=== PATIENT | female | born 1930 | race Caucasian/White ===

== ENCOUNTER 2017-11-02 16:42 | Inpatient (IN) | payer OTHER, MEDICARE ==
[~2017-11-02] VITALS: Ht 160 cm; Wt 67.1 kg
[~2017-11-02 16:42] MED LIST: AMLODIPINE BESYL5 MG PO; ASPIR-LOW81 MG PO; ATROVENT 0.06%15 ML BOTH NARES; BIOTIN5 M1 PO; CIPRO500 MG PO; FISH OIL500 MG PO; FLORASTOR250 MG PO; LISINOPRIL10 MG PO; LISINOPRIL5 MG PO; OSTERA TABLET1 EACH PO; RED YEAST RICE600 MG PO; TRIAMTERENE-HC1 EAC1 PO; TRIAMTERENE-HC1 EACH PO; TRICOR145 MG PO; VITAMIN D1000 UNIT PO; XALATAN2.5 ML BOTH EYES
[2017-11-02 17:04] LABS: BASOPHIL (%) 0.4 % (0-1); EOSINOPHIL (%) 0.8 % (0-5); EOSINOPHIL COUNT 0.1 K/uL (0-0.3); HEMATOCRIT 40.5 % (36.0-46.0); HEMOGLOBIN 13.5 G/DL (11.9-15.5); IMMATURE GRANULOCYTE (%) 0.5 % (0.0-0.7); LYMPHOCYTE (%) 37.1 % (15-42); LYMPHOCYTE COUNT 2.8 K/uL (1.0-2.8); MCH 28.9 PG (29.0-34.0); MCHC 33.3 G/DL (30.0-36.0); MCV 86.7 FL (83-99); MONOCYTE (%) 7.5 % (3-12); MONOCYTE COUNT 0.6 K/uL (0-0.8); NEUTROPHIL (%) 53.7 % (45-76); NEUTROPHIL COUNT 4.1 K/uL (1.8-6.4); PLATELET COUNT 227 K/uL (156-360); RBC DIS.WIDTH-CV 14.1 % (11.8-14.6); RBC DIS.WIDTH-SD 44.7 % (39-53); RED BLOOD COUNT 4.67 M/uL (3.80-5.20); WHITE BLOOD COUNT 7.6 K/uL (4.1-10.2)
[2017-11-02 17:12] LABS: PTT 27.5 SEC (25-37)
[2017-11-02 17:16] LABS: MAGNESIUM 2.1 mg/dL (1.3-2.7)
[2017-11-02 17:16] LABS: ALBUMIN 4.2 g/dL (3.2-4.8); CHLORIDE 104 mEq/L (99-109); POTASSIUM 3.9 mEq/L (3.7-5.4); SODIUM 141 mEq/L (136-147)
[2017-11-02 17:18] LABS: GLUCOSE 141 mg/dL (70-99)
[2017-11-02 17:20] LABS: TOTAL BILIRUBIN 0.5 mg/dL (0.0-1.0)
[2017-11-02 17:22] LABS: ALKALINE PHOSPHATASE 86 IU/L (3-129); CREATININE 1.2 mg/dL (0.6-1.3); GFR ESTIMATE (CALCULATED) 45 mL/min/
[2017-11-02 17:23] LABS: UREA NITROGEN (BUN) 28 mg/dL (9-23)
[2017-11-02 17:24] LABS: AST (GOT) 26 IU/L (2-34)
[2017-11-02 17:25] LABS: ALT (GPT) 19 IU/L (3-49)
[2017-11-02 18:39] LABS: TROP-I INTERPRETATION NEGATIVE; TROPONIN-I < 0.01 ng/mL (0.0-0.30)
[2017-11-02 19:02] LABS: APPEARANCE CLOUDY ((CLEAR)); BILIRUBIN NEGATIVE; BLOOD SMALL; COLOR YELLOW ((YELLOW)); GLUCOSE (STRIP) NEGATIVE; KETONES NEGATIVE; LEUKOCYTES LARGE; NITRITE POSITIVE; PROTEIN (STRIP) NEGATIVE; SPECIFIC GRAVITY 1.009 (1.000-1.030); UROBILINOGEN 0.2 MG/DL (0.2-1.0)
[2017-11-02 19:26] LABS: EPITHELIAL CELLS RARE /HPF; MUCUS RARE /LPF; RED BLOOD CELLS 0-5 /HPF (0-5); WHITE BLOOD CELLS TNTC /HPF (0-5)
[2017-11-02 19:27] LABS: BACTERIA 2+ /HPF; UCUL ADDED? YES
[2017-11-02] MEDS ORDERED: COD LIVER OIL1 EAC3 PO (19:29)
[2017-11-02] MEDS ORDERED: AMLODIPINE BES2.5 MG PO (19:30)
[2017-11-02] MEDS ORDERED: LISINOPRIL-HCT1 EACH PO (19:30)
[2017-11-02] MEDS ORDERED: ASPIR 8181 M1 PO (19:31)
[2017-11-02 21:38] VITALS: BP 141/69
[2017-11-02 22:15] VITALS: BP 148/67
[2017-11-02 22:17] VITALS: BP 143/58
[2017-11-02 22:19] VITALS: BP 146/67
[2017-11-03 00:14] VITALS: BP 156/71
[2017-11-03 03:56] VITALS: BP 148/70
[2017-11-03 05:33] LABS: CHLORIDE 105 MEQ/L (99-109); GFR ESTIMATE (CALCULATED) 56 mL/min/; HDL CHOLESTEROL 51 MG/DL (Desirable>=50); LDL CHOLESTEROL 132 mg/dL (Desirable<100); NON-HDL CHOLESTEROL 165 mg/dL (Desirable<160); POTASSIUM 3.4 MEQ/L (3.7-5.4); SODIUM 141 MEQ/L (136-147); TOTAL CHOLESTEROL 216 mg/dL (Desirable<200); TRIGLYCERIDES 164 MG/DL (Normal: <150); UREA NITROGEN (BUN) 20 mg/dL (9-23)
[2017-11-03 05:34] LABS: GLUCOSE 89 mg/dL (70-99)
[2017-11-03 08:27] VITALS: BP 179/73
[2017-11-03 12:10] VITALS: BP 167/87
[2017-11-03 19:17] VITALS: BP 130/61
[2017-11-03 23:32] VITALS: BP 150/72
[2017-11-04 04:46] VITALS: BP 132/62
[2017-11-04 05:55] LABS: CHLORIDE 105 MEQ/L (99-109); CREATININE 1.1 MG/DL (0.6-1.3); GFR ESTIMATE (CALCULATED) 50 mL/min/; GLUCOSE 95 mg/dL (70-99); POTASSIUM 4.6 MEQ/L (3.7-5.4); SODIUM 142 MEQ/L (136-147); UREA NITROGEN (BUN) 27 mg/dL (9-23)
[2017-11-04 07:40] VITALS: BP 144/69
[2017-11-04] MEDS ORDERED: ATORVASTATIN CA40 MG PO (11:07)
[2017-11-04] MEDS ORDERED: ASPIR-LOW81 MG PO (11:08)
[2017-11-04] MEDS ORDERED: CEFTIN500 MG PO (11:09)
[2017-11-04 12:10] VITALS: BP 178/71
== END 2017-11-04 13:16 | disposition home or self-care (01) | DRG 69 ==
LOC: EME 16:42 → 4SOUTH 19:29 → EDOF 19:29 → ENRESERV 19:31 → 4SOUTH 21:21 → CANRESERV 11-03 11:05 → ENRESERV 11-03 11:05 → ENPENDDIS 11-04 11:26 → 4SOUTH 11-04 13:16
PROVIDERS: Emergency Medicine; Hospitalist; Physician Assistant Medical
DX: G45.9 Transient cerebral ischemic attack, unspecified (principal); N39.0 Urinary tract infection, site not specified; N17.9 Acute kidney failure, unspecified; J90 Pleural effusion, not elsewhere classified; J98.11 Atelectasis; N18.3 Chronic kidney disease, stage 3 (moderate); E86.0 Dehydration; E87.6 Hypokalemia; E78.5 Hyperlipidemia, unspecified; B96.20 Unspecified Escherichia coli [E. coli] as the cause of diseases classified elsewhere; H40.9 Unspecified glaucoma; I12.9 Hypertensive chronic kidney disease with stage 1 through stage 4 chronic kidney disease, or unspecified chronic kidney disease; E55.9 Vitamin D deficiency, unspecified; R94.31 Abnormal electrocardiogram [ECG] [EKG]; R47.81 Slurred speech; Z79.82 Long term (current) use of aspirin; Z80.0 Family history of malignant neoplasm of digestive organs; Z80.1 Family history of malignant neoplasm of trachea, bronchus and lung; Z82.3 Family history of stroke
CPT/HCPCS: 36415; 70450; 70551; 71045; 80048; 80053; 80061; 81003; 82150; 82607; 83036; 83605; 83690; 83735; 84443; 84484; 85025; 85610; 85730; 86850; 86900; 86901; 87040; 87077; 87086; 87186; 92523 GN; 93005; 93306; 93880; 99281; 99285; G0378; G0480; J0696; J1644; J7030

== ENCOUNTER 2017-11-25 17:13 | Inpatient (IN) | payer OTHER, MEDICARE ==
[~2017-11-25] VITALS: Ht 162.6 cm; Wt 69.2 kg
[~2017-11-25 17:13] MED LIST changes: +AMLODIPINE BES2.5 MG PO; +ASPIR 8181 M1 PO; +ATORVASTATIN CA40 MG PO; +CEFTIN500 MG PO; +COD LIVER OIL1 EAC3 PO; +LISINOPRIL-HCT1 EACH PO
[2017-11-25 18:44] LABS: BASOPHIL (%) 0.1 % (0-1); EOSINOPHIL (%) 0 % (0-5); HEMATOCRIT 36.3 % (36.0-46.0); HEMOGLOBIN 12.3 G/DL (11.9-15.5); IMMATURE GRANULOCYTE (%) 0.5 % (0.0-0.7); LYMPHOCYTE COUNT 1.4 K/uL (1.0-2.8); MCH 28.7 PG (29.0-34.0); MCHC 33.9 G/DL (30.0-36.0); MCV 84.8 FL (83-99); MONOCYTE (%) 7.6 % (3-12); MONOCYTE COUNT 0.8 K/uL (0-0.8); NEUTROPHIL (%) 77.8 % (45-76); NEUTROPHIL COUNT 7.9 K/uL (1.8-6.4); PLATELET COUNT 168 K/uL (156-360); RBC DIS.WIDTH-CV 14.4 % (11.8-14.6); RBC DIS.WIDTH-SD 44.9 % (39-53); RED BLOOD COUNT 4.28 M/uL (3.80-5.20); WHITE BLOOD COUNT 10.2 K/uL (4.1-10.2)
[2017-11-25 18:52] LABS: INTER. NORMALIZED RATIO 1.2
[2017-11-25 18:53] LABS: ALBUMIN 3.6 g/dL (3.2-4.8); CHLORIDE 97 mEq/L (99-109); POTASSIUM 3.2 mEq/L (3.7-5.4); SODIUM 132 mEq/L (136-147)
[2017-11-25 18:54] LABS: MAGNESIUM 1.9 mg/dL (1.3-2.7)
[2017-11-25 18:55] LABS: PTT 25.9 SEC (25-37)
[2017-11-25 18:56] LABS: GLUCOSE 150 mg/dL (70-99); TOTAL PROTEIN 6.5 g/dL (6.4-8.3)
[2017-11-25 18:57] LABS: APPEARANCE CLOUDY ((CLEAR)); BILIRUBIN NEGATIVE; BLOOD MODERATE; COLOR AMBER ((YELLOW)); GLUCOSE (STRIP) NEGATIVE; KETONES NEGATIVE; LEUKOCYTES MODERATE; NITRITE NEGATIVE; PROTEIN (STRIP) 100; SPECIFIC GRAVITY 1.014 (1.000-1.030)
[2017-11-25 18:58] LABS: TOTAL BILIRUBIN 0.8 mg/dL (0.0-1.0)
[2017-11-25 18:59] LABS: ALKALINE PHOSPHATASE 71 IU/L (3-129); CREATININE 1.4 mg/dL (0.6-1.3); GFR ESTIMATE (CALCULATED) 38 mL/min/
[2017-11-25 19:00] LABS: UREA NITROGEN (BUN) 32 mg/dL (9-23)
[2017-11-25 19:01] LABS: AST (GOT) 59 IU/L (2-34)
[2017-11-25 19:02] LABS: ALT (GPT) 31 IU/L (3-49); CREATINE KINASE 549 IU/L (1-294); TOTAL CK 549 IU/L (1-294)
[2017-11-25 19:06] LABS: TROP-I INTERPRETATION POSITIVE
[2017-11-25 19:08] LABS: CK-MB 2.7 ng/mL (0.0-4.9); CKMB RELATIVE INDEX 0.5 (0.0-3.9)
[2017-11-25 19:11] LABS: TROPONIN-I 2.45 ng/mL (0.0-0.30)
[2017-11-25 19:14] LABS: RED BLOOD CELLS 0-5 /HPF (0-5); WHITE BLOOD CELLS TNTC /HPF (0-5)
[2017-11-25 19:15] LABS: EPITHELIAL CELLS RARE /HPF
[2017-11-25 19:16] LABS: AMORPHOUS URATES CRYSTALS 1+; BACTERIA 3+ /HPF; MUCUS TRACE /LPF; UCUL ADDED? YES
[2017-11-25] MEDS ORDERED: LO-DOSE ASPIRIN81 M1 PO (19:41)
[2017-11-25 20:43] LABS: HEMATOCRIT 34.3 % (36.0-46.0); HEMOGLOBIN 11.6 G/DL (11.9-15.5); MCH 28.6 PG (29.0-34.0); MCHC 33.8 G/DL (30.0-36.0); MCV 84.7 FL (83-99); PLATELET COUNT 159 K/uL (156-360); RBC DIS.WIDTH-CV 14.3 % (11.8-14.6); RBC DIS.WIDTH-SD 44.3 % (39-53); RED BLOOD COUNT 4.05 M/uL (3.80-5.20); WHITE BLOOD COUNT 10.9 K/uL (4.1-10.2)
[2017-11-25 20:55] LABS: ALBUMIN 3.4 g/dL (3.2-4.8); CHLORIDE 97 mEq/L (99-109); SODIUM 131 mEq/L (136-147)
[2017-11-25 20:57] LABS: GLUCOSE 142 mg/dL (70-99); TOTAL PROTEIN 6.2 g/dL (6.4-8.3)
[2017-11-25 20:59] LABS: MAGNESIUM 1.6 mg/dL (1.3-2.7); TOTAL BILIRUBIN 0.7 mg/dL (0.0-1.0)
[2017-11-25 21:00] VITALS: BP 116/65
[2017-11-25 21:01] LABS: ALKALINE PHOSPHATASE 67 IU/L (3-129); CREATININE 1.4 mg/dL (0.6-1.3); GFR ESTIMATE (CALCULATED) 38 mL/min/
[2017-11-25 21:02] LABS: AST (GOT) 52 IU/L (2-34); UREA NITROGEN (BUN) 32 mg/dL (9-23)
[2017-11-25 21:04] LABS: ALT (GPT) 29 IU/L (3-49)
[2017-11-25 21:26] LABS: HDL CHOLESTEROL 44 MG/DL (Desirable>=50); LDL CHOLESTEROL 46 mg/dL (Desirable<100); NON-HDL CHOLESTEROL 69 mg/dL (Desirable<160); TOTAL CHOLESTEROL 113 mg/dL (Desirable<200); TRIGLYCERIDES 113 MG/DL (Normal: <150)
[2017-11-25 23:36] VITALS: BP 129/71
[2017-11-26 01:16] LABS: TROP-I INTERPRETATION POSITIVE
[2017-11-26 01:32] LABS: TROPONIN-I 1.94 ng/mL (0.0-0.30)
[2017-11-26 04:14] VITALS: BP 108/57
[2017-11-26 07:23] VITALS: BP 118/57
[2017-11-26 07:53] LABS: TROP-I INTERPRETATION POSITIVE; TROPONIN-I 1.97 ng/mL (0.0-0.30)
[2017-11-26 11:46] VITALS: BP 108/55
[2017-11-26 14:58] LABS: TROP-I INTERPRETATION POSITIVE; TROPONIN-I 1.43 ng/mL (0.0-0.30)
[2017-11-26 15:31] VITALS: BP 114/60
[2017-11-26 19:29] VITALS: BP 126/60
[2017-11-26 23:36] VITALS: BP 107/55
[2017-11-27 03:45] VITALS: BP 128/60
[2017-11-27 07:22] VITALS: BP 128/64
[2017-11-27 07:33] LABS: HEMATOCRIT 32.5 % (36.0-46.0); HEMOGLOBIN 10.5 G/DL (11.9-15.5); MCH 27.7 PG (29.0-34.0); MCHC 32.3 G/DL (30.0-36.0); MCV 85.8 FL (83-99); PLATELET COUNT 155 K/uL (156-360); RBC DIS.WIDTH-CV 14.6 % (11.8-14.6); RBC DIS.WIDTH-SD 46.1 % (39-53); RED BLOOD COUNT 3.79 M/uL (3.80-5.20); WHITE BLOOD COUNT 5.5 K/uL (4.1-10.2)
[2017-11-27 08:35] LABS: CHLORIDE 103 MEQ/L (99-109); MAGNESIUM 1.7 mg/dl (1.3-2.7); UREA NITROGEN (BUN) 23 mg/dL (9-23)
[2017-11-27 08:36] LABS: CREATININE 0.9 MG/DL (0.6-1.3); GFR ESTIMATE (CALCULATED) > 59 mL/min/; GLUCOSE 97 mg/dL (70-99); POTASSIUM 3.8 MEQ/L (3.7-5.4); SODIUM 138 MEQ/L (136-147)
[2017-11-27 09:47] LABS: HEMOGLOBIN A1c (GLYCOHEMOGLOB) 5.7 % (Below 5.7)
[2017-11-27 11:34] VITALS: BP 134/67
[2017-11-27 16:24] VITALS: BP 133/70
[2017-11-27 19:47] VITALS: BP 124/58
[2017-11-28 00:03] VITALS: BP 125/61
[2017-11-28 04:09] VITALS: BP 136/65
[2017-11-28 05:28] LABS: HEMATOCRIT 32.4 % (36.0-46.0); HEMOGLOBIN 10.4 G/DL (11.9-15.5); MCH 27.6 PG (29.0-34.0); MCHC 32.1 G/DL (30.0-36.0); MCV 85.9 FL (83-99); PLATELET COUNT 161 K/uL (156-360); RBC DIS.WIDTH-CV 14.3 % (11.8-14.6); RBC DIS.WIDTH-SD 45.6 % (39-53); RED BLOOD COUNT 3.77 M/uL (3.80-5.20)
[2017-11-28 05:55] LABS: CHLORIDE 103 MEQ/L (99-109); CREATININE 0.9 MG/DL (0.6-1.3); GFR ESTIMATE (CALCULATED) > 59 mL/min/; GLUCOSE 110 mg/dL (70-99); MAGNESIUM 1.7 mg/dl (1.3-2.7); POTASSIUM 3.9 MEQ/L (3.7-5.4); SODIUM 138 MEQ/L (136-147); UREA NITROGEN (BUN) 24 mg/dL (9-23)
[2017-11-28 08:52] VITALS: BP 128/65
[2017-11-28] MEDS ORDERED: LOPRESSOR25 MG PO (10:00)
[2017-11-28] MEDS ORDERED: LISINOPRIL2.5 MG PO (10:00)
[2017-11-28] MEDS ORDERED: NITROSTAT0.4 MG SL (10:00)
[2017-11-28] MEDS ORDERED: INVANZ1 GM IV (10:01)
== END 2017-11-28 16:43 | DRG 281 ==
LOC: EME 17:13 → 4EAST 19:59 → EDOF 19:59 → ENRESERV 20:14 → 4EAST 20:59
PROVIDERS: Emergency Medicine; Internal Medicine; Internal Medicine Cardiovascular Disease; Student in an Organized Health Care Education/Training Program
DX: I21.4 Non-ST elevation (NSTEMI) myocardial infarction (principal); R78.81 Bacteremia; N39.0 Urinary tract infection, site not specified; B96.20 Unspecified Escherichia coli [E. coli] as the cause of diseases classified elsewhere; E86.0 Dehydration; N17.9 Acute kidney failure, unspecified; E87.1 Hypo-osmolality and hyponatremia; E87.6 Hypokalemia; I12.9 Hypertensive chronic kidney disease with stage 1 through stage 4 chronic kidney disease, or unspecified chronic kidney disease; E78.5 Hyperlipidemia, unspecified; H40.9 Unspecified glaucoma; E83.51 Hypocalcemia; N18.9 Chronic kidney disease, unspecified; Z80.1 Family history of malignant neoplasm of trachea, bronchus and lung; Z87.440 Personal history of urinary (tract) infections; Z82.3 Family history of stroke; Z79.82 Long term (current) use of aspirin; Z79.899 Other long term (current) drug therapy; D64.9 Anemia, unspecified
CPT/HCPCS: 71045; 76937; 80048; 80053; 80061; 81003; 82550; 82553; 83036; 83605; 83735; 84484; 85025; 85027; 85610; 85730; 87040; 87077; 87086 GA; 87186; 87801; 93005; 93306; 99281; 99285; C1751; C1894; J0696; J1335; J1644; J7030; J7050

== ENCOUNTER 2017-11-28 13:50 | Inpatient (IN) | payer OTHER, MEDICARE ==
[~2017-11-28] VITALS: Ht 160 cm; Wt 66.9 kg
[~2017-11-28 13:50] MED LIST changes: +INVANZ1 GM IV; +LISINOPRIL2.5 MG PO; +LO-DOSE ASPIRIN81 M1 PO; +LOPRESSOR25 MG PO; +NITROSTAT0.4 MG SL
[2017-11-28 17:13] VITALS: BP 135/63
[2017-11-29 00:17] VITALS: BP 129/75
[2017-11-29 04:54] VITALS: BP 126/66
[2017-11-29 06:27] LABS: HEMATOCRIT 31.6 % (36.0-46.0); HEMOGLOBIN 10.3 G/DL (11.9-15.5); MCH 28.1 PG (29.0-34.0); MCHC 32.6 G/DL (30.0-36.0); MCV 86.3 FL (83-99); PLATELET COUNT 173 K/uL (156-360); RBC DIS.WIDTH-CV 14.5 % (11.8-14.6); RBC DIS.WIDTH-SD 46.1 % (39-53); RED BLOOD COUNT 3.66 M/uL (3.80-5.20); WHITE BLOOD COUNT 4.6 K/uL (4.1-10.2)
[2017-11-29 08:22] LABS: ALBUMIN 2.8 G/DL (3.2-4.8); ALKALINE PHOSPHATASE 62 IU/L (3-129); ALT (GPT) 62 IU/L (3-49); AST (GOT) 92 IU/L (2-34); CHLORIDE 105 MEQ/L (99-109); CREATININE 0.8 MG/DL (0.6-1.3); GFR ESTIMATE (CALCULATED) > 59 mL/min/; GLUCOSE 102 mg/dL (70-99); SODIUM 140 MEQ/L (136-147); TOTAL BILIRUBIN 0.4 MG/DL (0.0-1.0); TOTAL PROTEIN 4.9 G/DL (6.4-8.3); UREA NITROGEN (BUN) 19 mg/dL (9-23)
[2017-11-29 15:56] VITALS: BP 113/61
[2017-11-30 04:40] VITALS: BP 122/60
[2017-11-30 15:33] VITALS: BP 128/63
[2017-12-01 05:21] VITALS: BP 176/82
[2017-12-01 05:53] VITALS: BP 122/58
[2017-12-01 15:41] VITALS: BP 129/68
[2017-12-02 04:26] VITALS: BP 120/70
[2017-12-02 15:39] VITALS: BP 142/74
[2017-12-03 05:04] VITALS: BP 151/74
[2017-12-03 15:49] VITALS: BP 128/58
[2017-12-04 05:51] VITALS: BP 143/64
[2017-12-04 15:50] VITALS: BP 112/58
[2017-12-05 05:38] VITALS: BP 138/76
[2017-12-05 16:11] VITALS: BP 139/84
[2017-12-06 05:30] VITALS: BP 143/65
[2017-12-06 16:09] VITALS: BP 112/75
[2017-12-07 06:36] VITALS: BP 138/72
[2017-12-07 15:38] VITALS: BP 114/56
[2017-12-08 00:58] LABS: APPEARANCE CLEAR ((CLEAR)); BILIRUBIN NEGATIVE; BLOOD NEGATIVE; COLOR YELLOW ((YELLOW)); GLUCOSE (STRIP) NEGATIVE; KETONES NEGATIVE; LEUKOCYTES NEGATIVE; NITRITE NEGATIVE; PROTEIN (STRIP) NEGATIVE; SPECIFIC GRAVITY 1.011 (1.000-1.030); UROBILINOGEN 0.2 MG/DL (0.2-1.0)
[2017-12-08 06:59] VITALS: BP 136/70
[2017-12-08 07:57] VITALS: BP 154/70
[2017-12-08] MEDS ORDERED: TYLENOL REGULA325 MG PO (13:57)
[2017-12-08] MEDS ORDERED: LOPRESSOR25 MG PO (13:57)
[2017-12-08] MEDS ORDERED: LISINOPRIL2.5 MG PO (13:57)
[2017-12-08 15:24] VITALS: BP 112/60
[2017-12-09 05:25] VITALS: BP 137/63
== END 2017-12-09 14:20 | DRG 945 ==
LOC: 3WEST 13:50 → ENPENDDIS 12-09 → 3WEST 12-09 14:20
PROVIDERS: Family Medicine Sports Medicine; Physical Medicine & Rehabilitation Pain Medicine
PROC: F07M0ZZ Range of Motion and Joint Mobility Treatment of Musculoskeletal System - Whole Body (ICD-10-PCS; principal; 2017-11-28)
DX: R53.1 Weakness (principal); Z74.09 Other reduced mobility; I21.4 Non-ST elevation (NSTEMI) myocardial infarction; N39.0 Urinary tract infection, site not specified; E87.6 Hypokalemia; E87.1 Hypo-osmolality and hyponatremia; E83.51 Hypocalcemia; I12.9 Hypertensive chronic kidney disease with stage 1 through stage 4 chronic kidney disease, or unspecified chronic kidney disease; D64.9 Anemia, unspecified; E78.5 Hyperlipidemia, unspecified; Z16.12 Extended spectrum beta lactamase (ESBL) resistance; E86.0 Dehydration; B96.20 Unspecified Escherichia coli [E. coli] as the cause of diseases classified elsewhere; N18.3 Chronic kidney disease, stage 3 (moderate); N81.10 Cystocele, unspecified; I25.10 Atherosclerotic heart disease of native coronary artery without angina pectoris; I27.20 Pulmonary hypertension, unspecified; Z82.3 Family history of stroke; Z87.440 Personal history of urinary (tract) infections
CPT/HCPCS: 80053; 81003; 85027; 97110 GO; 97530 GP; J1335; J7050